=== PATIENT | male | born 1950 | race African-American/Black ===

== ENCOUNTER 2018-03-03 12:24 | Emergency (ER) | payer MEDICARE ==
[2018-03-03] MEDS ORDERED: Sodium Chloride 0.9% 1,000 ML ONE ×2 (12:50→13:58)
--- NOTE | 2018-03-03 13:12 | RAD ---
CHEST ONE VIEW: History: Chest pain. FINDINGS: No comparison. Cardiac silhouette is magnified by projection. Pulmonary vasculature is unremarkable. Lungs are hyperinflated. Mediastinum is midline with post-operative changes. No lobar consolidation o r evidence of pneumothorax. Old post-traumatic and degenerative changes of the right shoulder. Cardia c monitor leads overlie the chest. IMPRESSION: No active cardiopulmonary abnormalities are demonstrated. POS: [facility]
[2018-03-03 13:26] LABS: ALT (SGPT) 19 U/L (8-55); AST (SGOT) 24 U/L (5-34); Albumin 3.9 g/dL (3.4-4.8); Alkaline Phosphatase 86 U/L (40-150); Anion Gap 19 mmol/L (10-20); BUN (Urea Nitrogen) 5 mg/dL (8.4-25.7); Bilirubin, Total 0.6 mg/dL (0.2-1.2); CK (CPK) 121 U/L (30-200); Calc. Creatinine Clearance 0 mL/min (70-130); Calcium 9.5 mg/dL (7.8-10.44); Carbon Dioxide 23 mmol/L (23-31); Chloride 103 mmol/L (98-107); Estimated GFR-MDRD Greater than 90; Globulin 3.8 g/dL (2.4-3.5); Glucose 160 mg/dL (80-115); Lipase 12 U/L (8-78); Potassium 4.1 mmol/L (3.5-5.1); Protein, Total 7.7 g/dL (5.8-8.1); Sodium 141 mmol/L (136-145)
[2018-03-03 13:27] LABS: CKMB 1.1 ng/mL (0-6.6); Troponin I 0.015 ng/mL (< 0.028)
[2018-03-03 13:28] LABS: Hemoglobin 14.8 g/dL (14.0-18.0); Mean Corpuscular HGB CONC 31.1 g/dL (32.0-36.0); Mean Corpuscular Hemoglobin 29.5 pg (27.0-31.0); Mean Corpuscular Volume 94.9 fL (78.0-98.0); Mean Platelet Volume 5.4 fL (7.4-10.4); Platelet Count 274 thou/uL (130-400); RBC Distribution Width 12.3 % (11.5-14.5); White Blood Cell (WBC) Count 5.3 thou/uL (4.8-10.8)
[2018-03-03] MEDS ORDERED: Piperacillin/Tazobactam 3.375 GM VIAL ONE (13:30)
[2018-03-03 13:33] LABS: MDiff Complete? YES
[2018-03-03 13:34] LABS: Lymphocytes 23 % (21-51); Monocytes 10 % (0-10); Neutrophil 67 % (42-75); PLT Morphology Comment Appears Adequate
[2018-03-03] MEDS ORDERED: Nitroglycerin 2% Ointment 1 INCH/1 GM Packet ONE (13:37)
[2018-03-03 13:43] LABS: Acetaminophen Less than 6.0 mcg/mL (10.0-30.0); Alcohol Less than 10 mg/dL (Less than 10); Salicylate Less than 8.0 mg/dL (15.0-30.0)
[2018-03-03] MEDS ORDERED: Levofloxacin 500 mg/D5W 100 ml Premix Bag ONE (13:52)
== END 2018-03-03 14:39 | disposition short-term general hospital (02) ==
LOC: NAV ERS 12:24
DX: R07.9 Chest pain, unspecified (principal); R55 Syncope and collapse; R74.0 Nonspecific elevation of levels of transaminase and lactic acid dehydrogenase [LDH]; I10 Essential (primary) hypertension; F17.210 Nicotine dependence, cigarettes, uncomplicated; Z79.82 Long term (current) use of aspirin; Z79.899 Other long term (current) drug therapy
CPT/HCPCS: 36416; 71045; 80053; 80307; 82553; 83605; 83690; 84484; 85025; 87040; 87149; 93005; 96361; 96365; J1956; J2543; J7050